=== PATIENT | female | born 1950 | race Two or more races ===

== ENCOUNTER 2017-10-18 14:58 | Outpatient (CLI) | payer OTHER | END 2017-10-18 15:23 | disposition home or self-care (01) | LOC: MAMO-SONO 14:58 | DX: Z12.31 Encounter for screening mammogram for malignant neoplasm of breast (principal); Z87.898 Personal history of other specified conditions; N60.11 Diffuse cystic mastopathy of right breast; N60.12 Diffuse cystic mastopathy of left breast; E04.2 Nontoxic multinodular goiter ==

== ENCOUNTER 2018-02-13 09:10 | Outpatient (CLI) | payer OTHER | END 2018-02-13 09:19 | disposition home or self-care (01) | LOC: RAD 09:10 | DX: R07.89 Other chest pain (principal) ==

== ENCOUNTER 2020-02-06 07:45 | Outpatient (CLI) | payer OTHER | END 2020-02-06 08:03 | disposition home or self-care (01) | LOC: MAMO-SONO 07:45 | PROVIDERS: ATTEND Family Medicine | DX: Z12.31 Encounter for screening mammogram for malignant neoplasm of breast (principal); Z87.898 Personal history of other specified conditions; N60.19 Diffuse cystic mastopathy of unspecified breast; E04.1 Nontoxic single thyroid nodule ==

== ENCOUNTER 2020-06-12 07:09 | Outpatient (CLI) | payer OTHER | END 2020-06-12 07:12 | disposition home or self-care (01) | LOC: RAD 07:09 | PROVIDERS: ATTEND Family Medicine | DX: M17.0 Bilateral primary osteoarthritis of knee (principal); M25.562 Pain in left knee ==

== ENCOUNTER 2020-09-22 07:13 | Outpatient (CLI) | payer OTHER | END 2020-09-22 07:24 | disposition home or self-care (01) | LOC: MRI 07:13 | PROVIDERS: ATTEND Family Medicine | DX: M17.12 Unilateral primary osteoarthritis, left knee (principal); M23.207 Derangement of unspecified meniscus due to old tear or injury, left knee | CPT/HCPCS: 73720 ==

== ENCOUNTER → 2020-11-09 | Outpatient (CLI) | payer OTHER | END | disposition home or self-care (01) | LOC: RAD 07:57 | PROVIDERS: ATTEND Ophthalmology | DX: R91.8 Other nonspecific abnormal finding of lung field (principal) ==

== ENCOUNTER 2021-04-07 14:29 | Outpatient (CLI) | payer OTHER | END 2021-04-07 15:15 | disposition home or self-care (01) | LOC: NUCLEAR 14:29 | PROVIDERS: ATTEND Family Medicine | DX: M81.0 Age-related osteoporosis without current pathological fracture (principal) ==

== ENCOUNTER 2021-12-30 07:59 | Outpatient (CLI) | payer OTHER | END 2021-12-30 08:07 | disposition home or self-care (01) | LOC: SONOGRAMA 07:59 | PROVIDERS: ATTEND Internal Medicine Gastroenterology | DX: R16.0 Hepatomegaly, not elsewhere classified (principal); R10.13 Epigastric pain ==

== ENCOUNTER 2022-03-08 13:17 | Outpatient (CLI) | payer OTHER | END 2022-03-08 13:28 | disposition home or self-care (01) | LOC: MAMO-SONO 13:17 | PROVIDERS: ATTEND Family Medicine | DX: N60.11 Diffuse cystic mastopathy of right breast (principal); N60.12 Diffuse cystic mastopathy of left breast ==

== ENCOUNTER 2022-03-10 07:22 | Outpatient (CLI) | payer OTHER | END 2022-03-10 07:27 | disposition home or self-care (01) | LOC: TOM 07:22 | PROVIDERS: ATTEND Family Medicine | DX: M23.207 Derangement of unspecified meniscus due to old tear or injury, left knee (principal) | CPT/HCPCS: 73718 ==

== ENCOUNTER 2022-12-05 14:09 | Outpatient (CLI) | payer OTHER | END 2022-12-05 14:19 | disposition home or self-care (01) | LOC: MRI 14:09 | PROVIDERS: ATTEND Family Medicine | DX: S83.241A Other tear of medial meniscus, current injury, right knee, initial encounter (principal); M17.11 Unilateral primary osteoarthritis, right knee | CPT/HCPCS: 73718 ==

== ENCOUNTER 2023-03-22 13:23 | Outpatient (CLI) | payer OTHER | END 2023-03-22 13:26 | disposition home or self-care (01) | LOC: NUCLEAR 13:23 | PROVIDERS: ATTEND Family Medicine | DX: M81.0 Age-related osteoporosis without current pathological fracture (principal) ==

== ENCOUNTER 2024-10-15 08:07 | Outpatient (CLI) | payer OTHER | END 2024-10-15 08:09 | disposition home or self-care (01) | LOC: MRI 08:07 | DX: S83.242S Other tear of medial meniscus, current injury, left knee, sequela (principal) | CPT/HCPCS: 73718 ==

== ENCOUNTER 2024-12-11 14:17 | Outpatient (CLI) | payer OTHER | END 2024-12-11 14:27 | disposition home or self-care (01) | LOC: MRI 14:17 | PROVIDERS: ATTEND Family Medicine | DX: M54.51 Vertebrogenic low back pain (principal); S30.0XXA Contusion of lower back and pelvis, initial encounter | CPT/HCPCS: 72148 ==

== ENCOUNTER 2025-03-03 07:22 | Outpatient (CLI) | payer OTHER | END 2025-03-03 07:27 | disposition home or self-care (01) | LOC: SONOGRAMA 07:22 | DX: M54.50 Low back pain, unspecified (principal); E04.2 Nontoxic multinodular goiter ==

== ENCOUNTER → 2025-04-04 10:01 | Outpatient (CLI) | payer OTHER | END | disposition home or self-care (01) | LOC: NUCLEAR 10:00 | PROVIDERS: ATTEND Family Medicine | DX: M81.0 Age-related osteoporosis without current pathological fracture (principal) ==

== ENCOUNTER 2025-05-08 07:08 | Outpatient (CLI) | payer OTHER | END 2025-05-08 07:10 | disposition home or self-care (01) | LOC: RAD 07:08 | DX: M25.561 Pain in right knee (principal); M25.562 Pain in left knee ==